=== PATIENT | female | born 1995 | race Caucasian/White ===

== ENCOUNTER 2018-11-04 07:19 | Emergency (ER) | payer OTHER, BC ==
[~2018-11-04] VITALS: Ht 162.6 cm; Wt 65.8 kg
[2018-11-04 07:40] LABS: HEMOGLOBIN 12.5 G/DL (11.5-16.0); MEAN PLATELET VOLUME 9.8 FL (7.4-10.4); RED CELL DISTRIBUTION WIDTH 12.7 % (10.0-14.5); WHITE BLOOD COUNT 10.8 10^3/uL (4.3-11.0)
--- NOTE | 2018-11-04 07:47 | NUR ---
PT HAS SMALL BRUISE TO R SIDE OF LOWER ABDOMEN. PT HAS CONTUSION TO R FOREARM. PT ALSO HAS SMALL LAC TO DORSAL SIDE OF R MIDDLE FINGER.
[2018-11-04 07:52] LABS: ALANINE AMINOTRANSFERASE 24 U/L (0-55); ALBUMIN 4.3 GM/DL (3.2-4.5); ALKALINE PHOSPHATASE 51 U/L (40-136); BILIRUBIN,DIRECT 0.1 MG/DL (0.0-0.3); BILIRUBIN,INDIRECT 0.2 MG/DL; BILIRUBIN,TOTAL 0.3 MG/DL (0.1-1.0); BUN/CREATININE RATIO 26; CALCIUM 9.5 MG/DL (8.5-10.1); CARBON DIOXIDE 23 MMOL/L (21-32); CHLORIDE 106 MMOL/L (98-107); CREATININE SERUM 0.87 MG/DL (0.60-1.30); GFR ESTIMATED > 60; GLUCOSE 97 MG/DL (70-105); POTASSIUM 3.6 MMOL/L (3.6-5.0); SODIUM 138 MMOL/L (135-145); TOTAL PROTEIN 7.3 GM/DL (6.4-8.2)
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
--- NOTE | 2018-11-04 09:01 | NUR ---
pt helped to wc at this time and assisted to bathroom
--- NOTE | 2018-11-04 09:09 | NUR ---
pt assisted back into bed
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
[2018-11-04 09:18] LABS: BILIRUBIN,URINE NEGATIVE (NEGATIVE); CLARITY,URINE CLEAR; COLOR,URINE YELLOW; GLUCOSE, URINE (UA) NEGATIVE (NEGATIVE); KETONES,URINE NEGATIVE (NEGATIVE); LEUKOCYTE ESTERASE ,URINE 1+ (NEGATIVE); NITRITE,URINE NEGATIVE (NEGATIVE); PH,URINE 5 (5-9); PROTEIN,URINE NEGATIVE (NEGATIVE); UROBILINOGEN,URINE NORMAL (NORMAL)
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
[2018-11-04] MEDS ORDERED: HYDR-3812 PO (09:27)
[2018-11-04] MEDS ORDERED: fentaNYL INJECTION 100 MCG/2 ML AMP IVP ONE (09:30)
[2018-11-04 09:37] LABS: BACTERIA,URINE TRACE /HPF; WBC,URINE 0-2 /HPF
[2018-11-04 09:38] LABS: SQUAMOUS EPITHELIAL CELL,UR RARE /HPF
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
[2018-11-04 10:17] VITALS: BP 149/90
--- NOTE | 2018-11-04 10:17 | NUR ---
pt walked to discharge accompanied by boyfriend without difficulty at this time.
== END 2018-11-04 10:17 | disposition home or self-care (01) ==
LOC: EDUNIT# 07:19 → ER 07:20
DX: S22.31XA Fracture of one rib, right side, initial encounter for closed fracture (principal); S50.11XA Contusion of right forearm, initial encounter; S30.1XXA Contusion of abdominal wall, initial encounter; R40.2142 Coma scale, eyes open, spontaneous, at arrival to emergency department; R40.2252 Coma scale, best verbal response, oriented, at arrival to emergency department; R40.2362 Coma scale, best motor response, obeys commands, at arrival to emergency department; V49.40XA Driver injured in collision with unspecified motor vehicles in traffic accident, initial encounter
CPT/HCPCS: 36415; 71045; 71260; 72170; 73090; 73552; 74177; 80048; 80076; 80320; 81000; 84703; 85027; 87088; 93041

== ENCOUNTER → 2020-05-09 | Outpatient (CLI) | payer BC, MEDICAID, OTHER ==
[~2020-05-09] MED LIST: ACHD5005 PO
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
== END ==
LOC: RAD 15:15
PROVIDERS: ATTEND Nurse Practitioner Women's Health
DX: Z34.92 Encounter for supervision of normal pregnancy, unspecified, second trimester (principal); Z3A.19 19 weeks gestation of pregnancy
CPT/HCPCS: 76805

== ENCOUNTER 2020-09-11 13:08 | Inpatient (IN) | payer MEDICAID ==
[2020-09-11] VITALS (8 sets, daily range): BP systolic 142–161; BP diastolic 74–87
[~2020-09-11] VITALS: Ht 162.6 cm; Wt 79.1 kg
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
[2020-09-11 14:41] LABS: BILIRUBIN,URINE NEGATIVE (NEGATIVE); CLARITY,URINE CLEAR; COLOR,URINE YELLOW; GLUCOSE, URINE (UA) NEGATIVE (NEGATIVE); KETONES,URINE NEGATIVE (NEGATIVE); LEUKOCYTE ESTERASE ,URINE NEGATIVE (NEGATIVE); NITRITE,URINE NEGATIVE (NEGATIVE); PROTEIN,URINE NEGATIVE (NEGATIVE)
[2020-09-11 14:50] LABS: AMORPHOUS SEDIMENT,UR MOD AMOR URATES /LPF; BACTERIA,URINE NEGATIVE /HPF; SQUAMOUS EPITHELIAL CELL,UR RARE /HPF; WBC,URINE RARE /HPF
[2020-09-11] MEDS ORDERED: MINERAL OIL CONCENTRATE 99.9% 15 ML UDC TOP PRN (15:45)
--- NOTE | 2020-09-11 15:50 | History & Physical-OB ---
OB - Chief Complaint & HPI Date/Time Date of Admission: Date of Admission: Sep 11, 2020 at 15:22 Date seen by a Provider: Sep 11, 2020 Time Seen by a Provider: 15:30 Chief Complaint/History OB-Reason for Admission/Chief: leakage of fluid Hx : 1 Hx Para: 0 Expected Date of Delivery: Sep 23, 2020 Gestational Age in Weeks: 38 Gestational Age in Days: 2 Admission Nurse Assessment Rev: Yes History of Labs O+/- HIV - Hep C- HBsAg- GBS - Rub I VDRL NR Other Presents with complaint of SROM after intercourse. Fern -, amnisure + Contractions every 2-3 minutes. Admitted for early labor and possible ROM. Likely not ROM but intercourse Admittd for labor Anticipate Allergies and Home Medications Allergies Coded Allergies: No Known Drug Allergies (Unverified , 11/11/11) Patient Home Medication List Home Medication List Reviewed: Yes OB - History Hx of Present Ultrasounds: Normal mid trimester US Obstetrical Complications: Other Medical Complications: Cardiovascular (probable chronic hypertension) Information Pre-Hospital Medication Admins: labetalol 100 mg bid Obstetrical History Hx : 1 Hx Para: 0 Hx # Term Pregnancies: 0 Hx # Pregnancies: 0 Number of Living Children: 0 Delivery History Hx Blood Disorders: No Patient Past Medical History probable chronic hypertension, but not previously diagnosed Social History/Family History HIV/AIDS: No Recent Infectious Disease Expo: No Sexually Transmitted Disease: No Alcohol Use: Denies Use Recreational Drug Use: No Smoking Cessation: Never smoker Immunizations Hepatitis A: Yes Hepatitis B: Yes Tetanus Booster (TDap): Less than 5yrs (06/2020) Date of Influenza Vaccine: Jul 04, 2020 Rubella: immune RPR/VDRL: Negative GBS Status: Negative HBsAG: Negative OB - Admission Exam Physical Exam Vitals: see RN notes Heart: Rhythm Normal Lungs: Clear Abdomen: Gravid Extremities: Edema Reflexes: Normal Cervical Dilatation: 2cm Effacement: 50% Station: -2 Membranes: Intact (questionable) Amniotic Fluid: Clear Heart Rate: 140's Accelerations: Accelerations Present Decelerations: No Decelerations Short Term Variability: Present Mcc Variability: Average (6-25) Contractions on Admission: < 5 Minutes Apart Labs Laboratory Tests Test 09/11/20 13:20 09/11/20 14:00 Range/Units Urine Color YELLOW Urine Clarity CLEAR Urine pH 7.0 5-9 Urine Specific [place] 1.015 L 1.016-1.022 Urine Protein NEGATIVE NEGATIVE Urine Glucose (UA) NEGATIVE NEGATIVE Urine Ketones NEGATIVE NEGATIVE Urine Nitrite NEGATIVE NEGATIVE Urine Bilirubin NEGATIVE NEGATIVE Urine Urobilinogen 0.2 < = 1.0 MG/DL Urine Leukocyte Esterase NEGATIVE NEGATIVE Urine RBC (Auto) NEGATIVE NEGATIVE Urine RBC NONE /HPF Urine WBC RARE /HPF Urine Squamous Epithelial Cells RARE /HPF Urine Crystals NONE /LPF Urine Amorphous Sediment MOD [place]ILL[place] URATES H /LPF Urine Bacteria NEGATIVE /HPF Urine Casts NONE /LPF Urine Mucus NEGATIVE /LPF Urine Culture Indicated NO Amniotic Fluid Ferning Test NEGATIVE NEGATIVE OB - Assessment/Plan/Diagnosis Assessment Assessment: active labor Admission Dx 38 week gestation in labor admit for labor, anticipate Peds - [place] Admission Status: Inpatient Order (span 2 midnights) Reason for Inpatient Admission: labor Plan Plan: Expectant Management SHYANNE BUITRAGO DO Sep 11, 2020 15:50
[2020-09-11 16:49] LABS: BASOPHILS % (AUTO) 0 % (0-10); EOSINOPHILS # (AUTO) 0.4 10^3/uL (0.0-0.3); EOSINOPHILS % (AUTO) 3 % (0-10); HEMATOCRIT 34 % (35-52); HEMOGLOBIN 11.4 g/dL (11.5-16.0); LYMPHOCYTES # (AUTO) 1.8 10^3/uL (1.0-4.0); LYMPHOCYTES % (AUTO) 14 % (12-44); MEAN CORPUSCULAR HEMOGLOBIN 31 pg (25-34); MEAN CORPUSCULAR HGB CONC 34 g/dL (32-36); MEAN CORPUSCULAR VOLUME 91 fL (80-99); MEAN PLATELET VOLUME 10.6 fL (9.0-12.2); MONOCYTES # (AUTO) 0.6 10^3/uL (0.0-1.0); MONOCYTES % (AUTO) 5 % (0-12); NEUTROPHILS # (AUTO) 9.7 10^3/uL (1.8-7.8); NEUTROPHILS % (AUTO) 77 % (42-75); PLATELET COUNT 234 10^3/uL (130-400); WHITE BLOOD COUNT 12.5 10^3/uL (4.3-11.0)
[2020-09-11] MEDS ORDERED: CETI10CA PO (17:09)
[2020-09-11] MEDS ORDERED: LABE100T6 PO (17:09)
[2020-09-11] MEDS ORDERED: PREN-98 PO (17:09)
[2020-09-11] MEDS: D5 LR IV SOLUTION 1,000 ML IV SCH ×2 (17:20→23:45)
[2020-09-11] MEDS ORDERED: fentaNYL INJECTION 100 MCG/2 ML AMP IVP ONE ×2 (19:15→21:30)
[2020-09-11] MEDS ORDERED: fentaNYL INJECTION 100 MCG/2 ML AMP ONE ×2 (21:32→23:53)
[2020-09-11] MEDS ORDERED: CATHETER FLUSH 10 ML SYR IV SCH (22:00)
[2020-09-11] MEDS ORDERED: fentaNYL 2 mcg/ml BUPIVA 0.125 100 ML ONE (22:56)
[2020-09-11] MEDS ORDERED: LIDOCAINE PF 2% 5 ML (XYLOCAINE) VIAL ONE (23:52)
[2020-09-11] MEDS ORDERED: BUPIVACAINE 0.25% 30 ML (SENSORCAINE) VIAL ONE (23:52)
[2020-09-12] VITALS (31 sets, daily range): BP systolic 115–165; BP diastolic 60–93
[2020-09-12] MEDS ORDERED: LACTATED RINGERS 1,000 ML IV ONE ×2
[2020-09-12] MEDS ORDERED: ONDANSETRON 4 MG/2 ML (SDV) Z0FRAN IV PRN
[2020-09-12] MEDS ORDERED: EPIDURAL (fentaNYL 2 MCG/ML BUPIVA 0.125%)100 ML BAG EPI PRN
[2020-09-12] MEDS ORDERED: fentaNYL INJECTION 100 MCG/2 ML AMP INJ ONE
[2020-09-12] MEDS ORDERED: NALOXONE 0.4 MG/ML 1 ML (NARCAN) VIAL IV PRN
[2020-09-12] MEDS ORDERED: LIDOCAINE/EPI 2% 1:200,00 (XYLOCAINE) 10 ML VIAL ONE (04:20)
[2020-09-12] MEDS ORDERED: TETANUS,DIPTH,PERTUSS P/F (BOOSTRIX) 0.5 ML VIAL IM ONE (05:15)
[2020-09-12] MEDS ORDERED: BENZOCAINE/MENTHOL (DERMOPLAST) 60 ML CAN TP PRN (05:15)
[2020-09-12] MEDS ORDERED: OXYTOCIN PRE-MIX DRIP 500 ML IV SCH (05:15)
[2020-09-12] MEDS ORDERED: WITCH HAZEL(TUCKS) 40 EA JAR TOP PRN (05:15)
[2020-09-12] MEDS ORDERED: MEASLES,MUMPS,RUBELLA 1 EA INJ SQ ONE (05:15)
--- NOTE | 2020-09-12 05:15 | OB Labor & Delivery Record ---
Vag Delivery Note Vag Delivery Note Date of Delivery: 09/12/20 Preoperative Diagnosis: Zhanna Odell is a 25 /Para 1 / 0,Gestational Age 38 3/7 weeks who presented in early labor with possible srom Postoperative Diagnosis: Same Surgeon: SHYANNE BUITRAGO Anesthesia: epidural Delivery Type: vaginal Findings: Viable female , apgars 8/9, weight pending Lacerations: vaginal wall abrasions and small left vaginal wall tear Intact placenta with 3 vessel cord. Nuchal cord x 1 reduced, no body cord or shoulder dystocia Estimated Blood Loss: 150 ml Complications: None Condition: Stable Description of Procedure: The patient is a 25 year old female who presented with complaint of ROM. This was questionable, but she was shanice regularly and blood pressures were elevated, so she was admitted for labor Blood pressures have been elevated transiently throughout , but no preeclampsia. She was started on labetalol 100 mg bid about 1 week prior to delivery. Labs and urine have been n egative. She was admitted and informed consent was obtained. Her labor course was remarkable for AROM and then spontaneous contractions She progressed to complete dilatation and began to push. She was then set up for delivery. The infant's head was delivered atraumatically in the OP position. The shoulders and remainder of the 's body were then delivered without difficulty. There was a loose nuchal cord that was reduced. Upon delivery, the head was held below the level of the perineum and the mouth and nares were bulb suctioned. The cord was doubly clamped and cut and the infant was handed off to the pediatric staff. An intact placenta with 3-vessel cord delivered via [place] and there was found to be minimal bleeding.~ Vigorous fundal massage was performed and the fundus was found to be firm. IV oxytocin was given. Examination of the vagina and perineum revealed a small left vaginal wall laceration that continued to ooze despite pressure, so this was repaired with a figure of eight stitch of 3-0 vicryl suture. Following the repair, sponge, instrument and needle counts were correct. Mom and baby were both in stable condition in the labor suite. Vitals - Labs Vital Signs - I&O Vital Signs Date Time Temp Pulse Resp B/P (MAP) Pulse Ox O2 Delivery O2 Flow Rate FiO2 09/12/20 05:05 123 18 150/86 (107) Room Air 09/12/20 04:30 95 18 162/93 (116) Room Air 09/12/20 04:15 102 100 Room Air 09/12/20 04:00 90 18 135/77 (96) 99 Room Air 09/12/20 03:45 90 16 125/69 (87) 99 Room Air 09/12/20 03:30 93 18 151/74 (99) 100 Room Air 09/12/20 03:15 97 16 150/72 (98) 100 Room Air 09/12/20 03:08 82 16 122/71 (88) 100 Room Air 09/12/20 02:52 36.6 80 16 129/65 (86) 97 Room Air 09/12/20 02:38 73 16 126/62 (83) 97 Room Air 09/12/20 02:22 77 16 123/60 (81) 100 Room Air 09/12/20 02:08 75 16 115/60 (78) 96 Room Air 09/12/20 00:50 36.7 71 18 117/61 (79) 98 Room Air 09/12/20 00:35 78 22 117/65 (82) 98 Room Air 09/12/20 00:30 76 22 126/71 (89) 98 Room Air 09/12/20 00:23 77 22 138/69 (92) 98 Room Air 09/12/20 00:18 75 22 159/82 (107) 97 Room Air 09/12/20 00:12 81 22 132/88 (103) 98 Room Air 09/12/20 00:07 88 22 165/78 (107) 98 Room Air 09/12/20 00:02 90 22 153/73 (99) Room Air 09/11/20 23:50 81 16 161/87 (111) Room Air 09/11/20 23:05 36.6 80 16 142/81 (101) Room Air 09/11/20 20:48 68 16 147/78 (101) Room Air 09/11/20 19:50 36.5 83 16 147/78 (101) Room Air 09/11/20 19:14 Room Air 09/11/20 18:30 Room Air 09/11/20 18:00 Room Air 09/11/20 17:30 36.6 65 16 145/85 (105) Room Air 09/11/20 15:30 72 16 143/82 (102) Room Air 09/11/20 15:00 37.1 84 16 97 Room Air 09/11/20 15:00 Room Air 09/11/20 15:00 37.1 84 16 97 Room Air 09/11/20 14:30 Room Air 09/11/20 14:00 37.1 84 16 142/74 (96) 97 Room Air I & O 09/12/20 07:00 Output Total 0 ml Balance 0 ml Labs Laboratory Tests 09/11/20 13:20: Urine Color YELLOW, Urine Clarity CLEAR, Urine pH 7.0, Urine Specific [place] 1.015L, Urine Protein NEGATIVE, Urine Glucose (UA) NEGATIVE, Urine Ketones NEGATIVE, Urine Nitrite NEGATIVE, Urine Bilirubin NEGATIVE, Urine Urobilinogen 0.2, Urine Leukocyte Esterase NEGATIVE, Urine RBC (Auto) NEGATIVE, Urine RBC NONE, Urine WBC RARE, Urine Squamous Epithelial Cells RARE, Urine Crystals NONE, Urine Amorphous Sediment MOD LILLIANA URATESH, Urine Bacteria NEGATIVE, Urine Casts NONE, Urine Mucus NEGATIVE, Urine Culture Indicated NO 09/11/20 14:00: Amniotic Fluid Ferning Test NEGATIVE 09/11/20 15:00: White Blood Count 12.5H, Red Blood Count 3.73L, Hemoglobin 11.4L, Hematocrit 34L , Mean Corpuscular Volume 91, Mean Corpuscular Hemoglobin 31, Mean Corpuscular Hemoglobin Concent 34, Red Cell Distribution Width 12.8, Platelet Count 234, Mean Platelet Volume 10.6, Immature Granulocyte % (Auto) 0, Neutrophils (%) (Auto) 77H, Lymphocytes (%) (Auto) 14, Monocytes (%) (Auto) 5, Eosinophils (%) (Auto) 3, Basophils (%) (Auto) 0, Neutrophils # (Auto) 9.7H, Lymphocytes # (Auto) 1.8, Monocytes # (Auto) 0.6, Eosinophils # (Auto) 0.4H, Basophils # (Auto) 0.0, Immature Granulocyte # (Auto) 0.1 09/11/20 18:30: SHYANNE BUITRAGO DO Sep 12, 2020 05:14
[2020-09-12] MEDS ORDERED: CATHETER FLUSH 10 ML SYR IV SCH (06:00)
[2020-09-12] MEDS: IBUPROFEN 600 MG (MOTRIN) TAB PO SCH ×3 (06:09→18:10)
[2020-09-12] MEDS: ACETAMINOPHEN 500 MG TAB (TYLENOL) PO SCH ×3 (06:09→22:25)
[2020-09-12] MEDS ORDERED: PRENATAL VITAMIN 1 EA TAB PO SCH (07:00)
--- NOTE | 2020-09-12 07:45 | NUR ---
Pt assisted up to standing at side of bed. Pt ambulates to bathroom accompanied by RN. +void. Pericare performed, clean pad and underwear on. Pt assisted to wheelchair. Pt wheeled to room 312 accompanied by RN, S.O., infant, and all personal belongings. Pt and S.O. oriented to room and call light. packet explained. Pt denies needs or concerns at this time. Will return for full assessment.
[2020-09-12] MEDS ORDERED: FERROUS SULF 325 MG (IRON) TAB PO SCH (09:00)
[2020-09-12] MEDS: DOCUSATE SODIUM 100 MG (COLACE) CAP PO SCH (20:53)
[2020-09-13] MEDS: IBUPROFEN 600 MG (MOTRIN) TAB PO SCH ×3 (00:10→12:20)
[2020-09-13 02:00] VITALS: BP 132/67
[2020-09-13 05:57] VITALS: BP 138/73
[2020-09-13] MEDS: ACETAMINOPHEN 500 MG TAB (TYLENOL) PO SCH (05:59)
[2020-09-13 06:10] LABS: BASOPHILS # (AUTO) 0.1 10^3/uL (0.0-0.1); BASOPHILS % (AUTO) 0 % (0-10); EOSINOPHILS # (AUTO) 0.4 10^3/uL (0.0-0.3); EOSINOPHILS % (AUTO) 2 % (0-10); HEMATOCRIT 29 % (35-52); HEMOGLOBIN 9.8 g/dL (11.5-16.0); LYMPHOCYTES # (AUTO) 2.7 10^3/uL (1.0-4.0); LYMPHOCYTES % (AUTO) 15 % (12-44); MEAN CORPUSCULAR HEMOGLOBIN 31 pg (25-34); MEAN CORPUSCULAR HGB CONC 34 g/dL (32-36); MEAN CORPUSCULAR VOLUME 92 fL (80-99); MEAN PLATELET VOLUME 10.5 fL (9.0-12.2); MONOCYTES # (AUTO) 0.8 10^3/uL (0.0-1.0); MONOCYTES % (AUTO) 5 % (0-12); NEUTROPHILS # (AUTO) 13.9 10^3/uL (1.8-7.8); NEUTROPHILS % (AUTO) 77 % (42-75); PLATELET COUNT 209 10^3/uL (130-400)
--- NOTE | 2020-09-13 09:00 | NUR ---
Dr Carrillo here to see pt. Pt may d/c home today if dismissed.
--- NOTE | 2020-09-13 09:01 | Postpartum Progress Note ---
Note Note Day # 1 s/p Subjective: Patient is without complaints. Ambulating, voiding. Tolerating a regular diet without nausea or vomiting. Normal lochia. Pain is well controlled with oral pain medications. breast feeding. Objective: 09/12/20 09/13/20 09/13/20 22:09 02:00 05:57 Temp 36.4 36.3 36.2 Pulse 68 62 71 Resp 18 18 20 B/P (MAP) 133/76 (95) 132/67 (88) 138/73 (94) Pulse Ox 97 96 98 O2 Delivery Room Air Room Air Room Air Laboratory Tests Test 09/13/20 05:16 Range/Units White Blood Count 18.0 H 4.3-11.0 10^3/uL Red Blood Count 3.14 L 3.80-5.11 10^6/uL Hemoglobin 9.8 L 11.5-16.0 g/dL Hematocrit 29 L 35-52 % Mean Corpuscular Volume 92 80-99 fL Mean Corpuscular Hemoglobin 31 25-34 pg Mean Corpuscular Hemoglobin Concent 34 32-36 g/dL Red Cell Distribution Width 13.1 10.0-14.5 % Platelet Count 209 130-400 10^3/uL Mean Platelet Volume 10.5 9.0-12.2 fL Immature Granulocyte % (Auto) 1 % Neutrophils (%) (Auto) 77 H 42-75 % Lymphocytes (%) (Auto) 15 12-44 % Monocytes (%) (Auto) 5 0-12 % Eosinophils (%) (Auto) 2 0-10 % Basophils (%) (Auto) 0 0-10 % Neutrophils # (Auto) 13.9 H 1.8-7.8 10^3/uL Lymphocytes # (Auto) 2.7 1.0-4.0 10^3/uL Monocytes # (Auto) 0.8 0.0-1.0 10^3/uL Eosinophils # (Auto) 0.4 H 0.0-0.3 10^3/uL Basophils # (Auto) 0.1 0.0-0.1 10^3/uL Immature Granulocyte # (Auto) 0.1 0.0-0.1 10^3/uL Physical Exam: General - Alert and oriented, no apparent distress Abdomen - Soft, appropriately tender to palpation, non-distended, fundus firm at umbilicus Extremities - no edema, negative Omid's bilaterally Assessment: 1. post- day # 1, status post spontaneous vaginal delivery. Recovering well, hemodynamically stable 2. acute blood loss anemia Plan: Routine care. Encourage breast feeding. Encourage ambulation. Ferrous sulfate supplementation. Plan for discharge today or tomorrow Vitals - Labs Vital Signs - I&O Vital Signs Date Time Temp Pulse Resp B/P (MAP) Pulse Ox O2 Delivery O2 Flow Rate FiO2 09/13/20 05:57 36.2 71 20 138/73 (94) 98 Room Air 09/13/20 02:00 36.3 62 18 132/67 (88) 96 Room Air 09/12/20 22:09 36.4 68 18 133/76 (95) 97 Room Air 09/12/20 18:08 36.1 73 142/67 (92) Room Air 09/12/20 14:45 36.7 75 18 147/72 (97) Room Air 09/12/20 12:29 36.4 78 18 143/70 (94) 97 Room Air 09/12/20 10:14 36.3 80 18 149/70 (96) 97 Room Air Labs Laboratory Tests 09/13/20 05:16: White Blood Count 18.0H, Red Blood Count 3.14L, Hemoglobin 9.8L, Hematocrit 29L, Mean Corpuscular Volume 92, Mean Corpuscular Hemoglobin 31, Mean Corpuscular Hemoglobin Concent 34, Red Cell Distribution Width 13.1, Platelet Count 209, Mean Platelet Volume 10.5, Immature Granulocyte % (Auto) 1, Neutrophils (%) (Auto) 77H, Lymphocytes (%) (Auto) 15, Monocytes (%) (Auto) 5, Eosinophils (%) (Auto) 2, Basophils (%) (Auto) 0, Neutrophils # (Auto) 13.9H, Lymphocytes # (Auto) 2.7, Monocytes # (Auto) 0.8, Eosinophils # (Auto) 0.4H, Basophils # (Auto) 0.1, Immature Granulocyte # (Auto) 0.1 SHYANNE BUITRAGO DO Sep 13, 2020 09:01
[2020-09-13] MEDS ORDERED: IBUP-844 PO (09:02)
[2020-09-13] MEDS ORDERED: ACET-93 PO (09:02)
--- NOTE | 2020-09-13 09:05 | Discharge Inst-Women's Service ---
Discharge Inst-Women's Serv Depart Medication/Instructions New, Converted or Re-Newed RX: Transmitted to Pharmacy Final Diagnosis Labor 38 week gestation acute blood loss anemia Problems Reviewed?: Yes Consults/Follow Up Additional Follow Up: Yes (6 week post exam) Activity Activity: Activity as Tolerated Driving Instructions: You May Drive NO SMOKING: NO SMOKING Nothing Inside Vagina: No Douching, No [place], No Tampons Diet Discharge Diet: No Restrictions Symptoms to Report to : Swelling Increased, Bleeding Excessive, Pain Increased, Fever Over 101 Degrees F, Vaginal Bleeding Increase, Cramps in Feet or Legs, Vaginal Discharge Foul For Any Problems or Questions: Contact Your Physician SHYANNE BUITRAGO DO Sep 13, 2020 09:05
[2020-09-13] MEDS: DOCUSATE SODIUM 100 MG (COLACE) CAP PO SCH (09:39)
[2020-09-13 12:18] VITALS: BP 152/78
--- NOTE | 2020-09-13 12:30 | NUR ---
Discharge instructions explained to pt with copy provided to pt along with breast pump prescription. Pt notified of need to call office to schedule 6wk f/u appt. Pt notified of scripts available and preferred pharmacy. Pt verbalizes understanding of instructions and signs to verify. Pt denies questions or concerns at this time.
--- NOTE | 2020-09-13 13:35 | NUR ---
Pt ambulates off unit to private vehicle with all personal belongings, accompanied by S.O., , and OB staff. NO s/s of distress noted.
== END 2020-09-13 13:35 | disposition home or self-care (01) | DRG 806 ==
LOC: WSo 13:08 → LDRP 13:09 → WSo 15:22 → LDRP 15:22
PROVIDERS: ADMIT Obstetrics & Gynecology; ATTEND Obstetrics & Gynecology
PROC: 10E0XZZ Delivery of Products of Conception, External Approach (ICD-10-PCS; principal; 2020-09-12)
PROC: 0UQGXZZ Repair Vagina, External Approach (ICD-10-PCS; 2020-09-12)
DX: O69.81X0 Labor and delivery complicated by cord around neck, without compression, not applicable or unspecified (principal); D62 Acute posthemorrhagic anemia; Z37.0 Single live birth; Z3A.38 38 weeks gestation of pregnancy; O71.89 Other specified obstetric trauma; O90.81 Anemia of the puerperium
CPT/HCPCS: 36415; 81000; 85025; 86850; 86900; 86901; 87635; 89060; 99212

== ENCOUNTER → 2021-11-06 | Outpatient (CLI) | payer BC, MEDICAID ==
[~2021-11-06] MED LIST changes: +ACET-93 PO; +CETI10CA PO; +IBUP-844 PO; +LABE100T6 PO; +PREN-98 PO
--- NOTE | 2021-11-06 13:55 | Diagnostic Imaging Report ---
INDICATION: survey. TECHNIQUE: Multiple Real-time grayscale images were obtained over the gravid uterus. COMPARISON: None FINDINGS: There is a single live fetus in a cephalic presentation. heart rate was recorded at 135 BPM. Placenta is anterior. No placenta previa is seen. Amniotic fluid volume is normal. The cervical length is 4.4 cm. kidneys, bladder, and stomach are unremarkable. brain is unremarkable. There is a four-chamber heart. There is a three-vessel cord with normal insertion. spine is unremarkable. Maternal adnexa were not evaluated. Biometrical measurements are as follows: Biparietal 4.80 cm, age 20 weeks 4 days. Head circumference 17.85 cm, age 20 weeks 3 days. Abdominal circumference 14.98 cm, age 20 weeks 2 days. Femur length 3.35 cm, age 20 weeks 4 days. Sonographic estimate age: 20 weeks 4 days. Sonographic estimated date of delivery: 03/22/2022. Estimated Weight: 348 gm (+/- 51 gm). LMP percentile: 41%. heart rate: 135 beats per minute. number: 1 of 1. IMPRESSION: Single live IUP of 20 weeks 4 days gestational age. Estimated date of confinement sonographically is 03/22/2022. Dictated by: Dictated on workstation # [id number]
== END ==
LOC: RAD 12:00
PROVIDERS: ATTEND Obstetrics & Gynecology
DX: Z36.1 Encounter for antenatal screening for raised alphafetoprotein level (principal); Z3A.20 20 weeks gestation of pregnancy
CPT/HCPCS: 76805

== ENCOUNTER → 2021-12-29 | Outpatient (CLI) | payer BC, MEDICAID ==
--- NOTE | 2021-12-29 14:44 | Diagnostic Imaging Report ---
INDICATION: Chronic hypertension during . TECHNIQUE: Multiple real-time grayscale images were obtained over the gravid uterus. COMPARISON: 11/06/2021. FINDINGS: The cervix measures approximately 4.0 cm in length. Fetus is in cephalic presentation. Placenta is anterior and fundal in position. The ALLA is normal at 13.38 cm. Limited anatomy assessment was performed. Maternal adnexa are not imaged. Biometrical measurements are as follows: Biparietal 7.20 cm, age 29 weeks 0 days. Head circumference 25.35 cm, age 27 weeks 4 days. Abdominal circumference 22.76 cm, age 27 weeks 2 days. Femur length 5.67 cm, age 29 weeks 6 days. Sonographic estimate age: 28 weeks 3 days. Sonographic estimated date of delivery: 03/20/2022. Estimated Weight: 1189 gm (+/- 174 gm). LMP percentile: 45%. heart rate: 140 beats per minute. number: 1 of 1. IMPRESSION: 1. Single live intrauterine . 2. Appropriate growth since second trimester ultrasound. Dictated by: Dictated on workstation # [id number]
== END ==
LOC: RAD 09:49
PROVIDERS: ATTEND Obstetrics & Gynecology
DX: O16.9 Unspecified maternal hypertension, unspecified trimester (principal); Z3A.00 Weeks of gestation of pregnancy not specified
CPT/HCPCS: 76805

== ENCOUNTER → 2022-01-25 | Outpatient (CLI) | payer BC, MEDICAID ==
--- NOTE | 2022-01-25 11:57 | Diagnostic Imaging Report ---
INDICATION: Chronic hypertension. TECHNIQUE: Multiple real-time grayscale images were obtained over the gravid uterus. COMPARISON: 12/29/2021. FINDINGS: There is a single live fetus in a cephalic presentation. heart rate was recorded at 158 BPM. Amniotic fluid index is 14.4 cm. Biophysical profile was performed. Biophysical profile score is normal at 8/8. Biometrical measurements are as follows: Biparietal 7.50 cm, age 30 weeks 1 days. Head circumference 27.65 cm, age 30 weeks 2 days. Abdominal circumference 25.33 cm, age 29 weeks 4 days. Femur length 6.12 cm, age 31 weeks 6 days. Sonographic estimate age: 30 weeks 4 days. Sonographic estimated date of delivery: 04/01/2022. Estimated Weight: 1559 gm (+/- 228 gm). LMP percentile: 7%. heart rate: 158 beats per minute. number: 1 of 1. IMPRESSION: Single live IUP of approximately 31 weeks gestational age. Biophysical profile score is normal at 8/8. Dictated by: Dictated on workstation # [id number]
== END ==
LOC: RAD 10:00
PROVIDERS: ATTEND Obstetrics & Gynecology
DX: O16.3 Unspecified maternal hypertension, third trimester (principal); Z3A.31 31 weeks gestation of pregnancy
CPT/HCPCS: 76805; 76819

== ENCOUNTER → 2022-01-28 | Outpatient (CLI) | payer BC, MEDICAID ==
[2022-01-28 17:03] LABS: URINE CREATININE FOR RATIO 26 MG/DL (30-125); URINE PROTEIN FOR RATIO ONLY < 6 MG/DL (6-12)
== END | disposition home or self-care (01) ==
LOC: LABNPT 16:38
PROVIDERS: ATTEND Obstetrics & Gynecology
DX: O13.9 Gestational [pregnancy-induced] hypertension without significant proteinuria, unspecified trimester (principal); Z3A.00 Weeks of gestation of pregnancy not specified
CPT/HCPCS: 82570; 84156

== ENCOUNTER → 2022-02-09 | Outpatient (RCR) | payer BC, MEDICAID ==
--- NOTE | 2022-02-02 09:45 | Diagnostic Imaging Report ---
TIME OF STUDY: 02/02/2022 9:34 AM INDICATION: Hypertension. COMPARISON: 01/25/2022. TECHNIQUE: Transabdominal sonogram was performed. GESTATIONAL AGE: 33 weeks, 0 days GENERAL EVALUATION: Presentation: Cephalic Placenta: Anterior Cardiac activity: 146 bpm Amniotic fluid index: The total ALLA is 9.9 cm. BIOPHYSICAL PROFILE SCORING: tone: 2 movement: 2 breathin Amniotic fluid: 2 TOTAL SCORE: 8 out of 8 FINDINGS/ IMPRESSION: 1. Single live intrauterine gestation with biophysical profile score of 8 out of 8. No abnormalities are detected. Dictated by: Dictated on workstation # [id number]
[~2022-02-09] MED LIST changes: +AMLO-250 PO
--- NOTE | 2022-02-12 13:49 | Diagnostic Imaging Report ---
INDICATION: Gestational hypertension. FINDINGS: There is a single live fetus in a cephalic presentation. heart rate was recorded at 130 bpm. Amniotic fluid index is 8.2 cm. Biophysical profile score is normal at 8 out of 8. cord Dopplers are as follows: end: Peak systolic velocity 78 cm/s, end-diastolic volume 20 cm/s, resistive index is 0.75, SD ratio 3.9. Placental end: Peak systolic velocity 52 cm/s, end-diastolic volume 23 cm/s, resistive index 0.56, SD ratio 2.3 IMPRESSION: Biophysical profile score a normal 8 out of 8. Resistive indices appear to be within normal limits. Dictated by: Dictated on workstation # [id number]
== END | disposition home or self-care (01) ==
LOC: EDSTATUS 02-02 09:00 → RAD 02-02 09:00
PROVIDERS: ATTEND Obstetrics & Gynecology
DX: O16.3 Unspecified maternal hypertension, third trimester (principal); Z3A.33 33 weeks gestation of pregnancy
CPT/HCPCS: 76819

== ENCOUNTER 2022-02-24 08:52 | Outpatient (RCR) | payer BC, MEDICAID ==
--- NOTE | 2022-02-16 13:55 | Diagnostic Imaging Report ---
Indication: Gestational hypertension. Correlation is made with prior study from 02/09/2022. Single live fetus in a cephalic presentation. heart rate was recorded at 127 bpm. Amniotic fluid index is 8.9 cm. Biophysical profile score is normal at 8 out of 8. cord Doppler measurements are as follows: end: Peak systolic velocity 64 cm/s. End-diastolic velocity 20 cm/s. Resistive index 0.70. SD ratio 3.3. Placental end: Peak systolic velocity 37 cm/s. End-diastolic velocity 17 cm/s. Resistive index 0.55. SD ratio 2.2. IMPRESSION: Continued normal biophysical profile score of 8 out of 8 with stable cord Doppler when compared with prior study from 02/09/2022. Dictated by: Dictated on workstation # [id number]
[~2022-02-24 08:52] MED LIST changes: -AMLO-250 PO
--- NOTE | 2022-02-24 12:08 | Diagnostic Imaging Report ---
HISTORY: Chronic hypertension, COMPARISON: 02/16/2022 TECHNIQUE: Transabdominal ultrasound of the gravid uterus. In addition, color Doppler and spectral Doppler ultrasound was performed of the umbilical cord. FINDINGS: There is a single live intrauterine gestation in cephalic presentation. The heart rate measures 136 BPM. The amniotic fluid index is measured at 6.2 cm. The biophysical profile score is 8 out of 8. The cord Doppler demonstrates continuous forward diastolic flow throughout the cord. SD ratio ranges between 3.7 at the cord insertion and 2.3 at the placenta. Velocity measures 96 cm/s at the fetus and 34 cm/s at the placenta. The resistive index measures 0.7. The fetus and 0.56 at the placenta. These appear similar to the prior exam. IMPRESSION: 1. Biophysical profile score of 8 out of 8. Dictated by: Dictated on workstation # [id number]
[2022-03-03] MEDS ORDERED: AMLO-250 PO (08:05)
[2022-03-03] MEDS ORDERED: IBUP-844 PO (20:03)
== END 2022-03-11 | disposition home or self-care (01) ==
LOC: RAD 08:52
PROVIDERS: ATTEND Obstetrics & Gynecology
DX: O16.9 Unspecified maternal hypertension, unspecified trimester (principal)
CPT/HCPCS: 76819

== ENCOUNTER 2022-03-03 06:00 | Inpatient (IN) | payer BC, MEDICAID ==
[~2022-03-03] VITALS: Ht 162.6 cm; Wt 80.9 kg
[2022-03-03] VITALS (70 sets, daily range): BP systolic 115–178; BP diastolic 58–103
[2022-03-03] MEDS: LACTATED RINGERS 1,000 ML IV SCH (07:30)
[2022-03-03] MEDS ORDERED: OXYTOCIN PRE-MIX DRIP 500 ML IV ONE (07:55)
[2022-03-03] MEDS: OXYTOCIN PRE-MIX DRIP 500 ML IV SCH ×2 (08:01→19:57)
[2022-03-03] MEDS ORDERED: AMLO-250 PO (08:05)
[2022-03-03 08:28] LABS: BILIRUBIN,URINE NEGATIVE (NEGATIVE); CLARITY,URINE CLEAR; COLOR,URINE YELLOW; GLUCOSE, URINE (UA) NEGATIVE (NEGATIVE); KETONES,URINE NEGATIVE (NEGATIVE); LEUKOCYTE ESTERASE ,URINE NEGATIVE (NEGATIVE); NITRITE,URINE NEGATIVE (NEGATIVE); PH,URINE 6.5 (5-9); PROTEIN,URINE NEGATIVE (NEGATIVE)
[2022-03-03 08:30] LABS: BASOPHILS % (AUTO) 0 % (0-10); EOSINOPHILS # (AUTO) 0.2 10^3/uL (0.0-0.3); EOSINOPHILS % (AUTO) 2 % (0-10); HEMATOCRIT 34 % (35-52); HEMOGLOBIN 11.8 g/dL (11.5-16.0); LYMPHOCYTES # (AUTO) 2.2 10^3/uL (1.0-4.0); LYMPHOCYTES % (AUTO) 20 % (12-44); MEAN CORPUSCULAR HEMOGLOBIN 31 pg (25-34); MEAN CORPUSCULAR HGB CONC 35 g/dL (32-36); MEAN CORPUSCULAR VOLUME 90 fL (80-99); MEAN PLATELET VOLUME 10.6 fL (9.0-12.2); MONOCYTES # (AUTO) 0.6 10^3/uL (0.0-1.0); MONOCYTES % (AUTO) 5 % (0-12); NEUTROPHILS # (AUTO) 7.9 10^3/uL (1.8-7.8); NEUTROPHILS % (AUTO) 72 % (42-75); PLATELET COUNT 243 10^3/uL (130-400); WHITE BLOOD COUNT 10.9 10^3/uL (4.3-11.0)
[2022-03-03] MEDS ORDERED: MINERAL OIL 30 ML TOP PRN (08:30)
[2022-03-03] MEDS: D5 LR IV SOLUTION 1,000 ML IV SCH ×2 (08:46→17:15)
[2022-03-03 08:48] LABS: BACTERIA,URINE MODERATE /HPF; SQUAMOUS EPITHELIAL CELL,UR 0-2 /HPF
[2022-03-03] MEDS ORDERED: fentaNYL 2 mcg/ml BUPIVA 0.125 100 ML ONE (14:40)
[2022-03-03] MEDS ORDERED: fentaNYL INJ 100 MCG/2 ML AMP ONE (14:52)
[2022-03-03] MEDS ORDERED: LIDOCAINE PF 2% 5 ML (XYLOCAINE) VIAL ONE (14:53)
[2022-03-03] MEDS ORDERED: NALOXONE 0.4 MG/ML 1 ML (NARCAN) VIAL IV PRN ×2 (16:45→20:00)
[2022-03-03] MEDS ORDERED: fentaNYL 2 mcg/ml BUPIVA 0.125 100 ML IV SCH (16:45)
[2022-03-03] MEDS ORDERED: diphenhydrAMINE 50 MG/ML INJ (BENADRYL) IV PRN (16:45)
[2022-03-03] MEDS ORDERED: CATHETER FLUSH 10 ML SYR IV PRN (16:45)
[2022-03-03] MEDS ORDERED: LACTATED RINGERS 1,000 ML IV ONE (16:45)
[2022-03-03] MEDS ORDERED: ONDANSETRON 4 MG/2 ML (SDV) Z0FRAN IV PRN (16:45)
[2022-03-03] MEDS ORDERED: LIDOCAINE/EPI 2% 1:200,00 (XYLOCAINE) 10 ML VIAL INJ ONE (19:15)
--- NOTE | 2022-03-03 19:57 | History & Physical-OB ---
OB - Chief Complaint & HPI Date/Time Date of Admission: Date of Admission: Mar 03, 2022 at 06:00 Time Seen by a Provider: 07:30 Chief Complaint/History OB-Reason for Admission/Chief: Induction of Labor Hx : 2 Hx Para: 1 Expected Date of Delivery: Mar 23, 2022 Gestational Age in Weeks: 37 Gestational Age in Days: 1 Indication for induction: other ( growth restriction, umbilical cord doppler with RI 95th percentile, CHTN) Allergies and Home Medications Allergies Coded Allergies: No Known Drug Allergies (Unverified , 11/11/11) Patient Home Medication List Home Medication List Reviewed: Yes Amlodipine Besylate (Amlodipine Besylate) 5 Mg Tablet, 5 MG PO HS, (Reported) Entered as Reported by: RADHA SALAZAR on 03/03/22804 Last Action: New Order Vit37/Iron/Folic Acid ([place] Chewable Tablet) 1 Each Tab.chew, 1 EACH PO DAILY, (Reported) Entered as Reported by: LAZ VALLADARES on 09/11/201708 Last Action: Reviewed Discontinued Medications Acetaminophen (Acetaminophen) 500 Mg Tablet, 1,000 MG PO Q8HR Discontinued Reason: No Longer Taking Prescribed by: SHYANNE BUITRAGO on 09/13/20901 Last Action: Discontinued Cetirizine HCl (Zyrtec) 10 Mg Capsule, 10 MG PO DAILY, (Reported) Discontinued Reason: No Longer Taking Entered as Reported by: LAZ VALLADARES on 09/11/201708 Last Action: Discontinued Ibuprofen (Ibu) 600 Mg Tablet, 600 MG PO Q6HR Discontinued Reason: No Longer Taking Prescribed by: SHYANNE BUITRAGO on 09/13/20901 Last Action: Discontinued OB - History Hx of Present Care: Yes Ultrasounds: Normal mid trimester US Obstetrical Complications: Growth Restriction, Other Medical Complications: Other (CHTN) Delivery History Hx Blood Disorders: No Adverse Rxn to Tranfusion: No Patient Past Medical History chronic hypertension Social History/Family History Alcohol Use: Denies Use Recreational Drug Use: No Smoking Cessation: Never smoker 2nd Hand Smoke Exposure: No Immunizations Influenza Vaccine Up-to-Date: No; Not Current First/Initial COVID19 Vaccine: MARCH 2021 Second COVID19 Vaccination: APRIL 2021 COVID19 Vaccine Power Cleaner Operator: MARC Hepatitis A: Yes Hepatitis B: Yes Tetanus Booster (TDap): Less than 5yrs OB - Admission Exam Physical Exam Vitals: Vital Signs 03/03/22 03/03/22 18:20 19:06 Temp 36.6 Pulse 90 Resp 18 B/P (MAP) 141/96 (111) Pulse Ox 100 O2 Delivery Room Air HEENT: NCAT Lungs: Clear Abdomen: Gravid Extremities: Normal Cervical Dilatation: 2cm Effacement: 50% Station: -3 Membranes: Intact Amniotic Fluid: Clear Accelerations: Accelerations Present Decelerations: No Decelerations Short Term Variability: Present Snf Variability: Average (6-25) Labs Laboratory Tests Test 03/03/22 06:10 03/03/22 07:25 Range/Units Urine Color YELLOW Urine Clarity CLEAR Urine pH 6.5 5-9 Urine Specific [place] 1.015 L 1.016-1.022 Urine Protein NEGATIVE NEGATIVE Urine Glucose (UA) NEGATIVE NEGATIVE Urine Ketones NEGATIVE NEGATIVE Urine Nitrite NEGATIVE NEGATIVE Urine Bilirubin NEGATIVE NEGATIVE Urine Urobilinogen 0.2 < = 1.0 MG/DL Urine Leukocyte Esterase NEGATIVE NEGATIVE Urine RBC (Auto) NEGATIVE NEGATIVE Urine RBC NONE /HPF Urine WBC 2-5 /HPF Urine Squamous Epithelial Cells 0-2 /HPF Urine Crystals NONE /LPF Urine Bacteria MODERATE H /HPF Urine Casts NONE /LPF Urine Mucus NEGATIVE /LPF Urine Culture Indicated NO White Blood Count 10.9 4.3-11.0 10^3/uL Red Blood Count 3.82 3.80-5.11 10^6/uL Hemoglobin 11.8 11.5-16.0 g/dL Hematocrit 34 L 35-52 % Mean Corpuscular Volume 90 80-99 fL Mean Corpuscular Hemoglobin 31 25-34 pg Mean Corpuscular Hemoglobin Concent 35 32-36 g/dL Red Cell Distribution Width 13.0 10.0-14.5 % Platelet Count 243 130-400 10^3/uL Mean Platelet Volume 10.6 9.0-12.2 fL Immature Granulocyte % (Auto) 1 % Neutrophils (%) (Auto) 72 42-75 % Lymphocytes (%) (Auto) 20 12-44 % Monocytes (%) (Auto) 5 0-12 % Eosinophils (%) (Auto) 2 0-10 % Basophils (%) (Auto) 0 0-10 % Neutrophils # (Auto) 7.9 H 1.8-7.8 10^3/uL Lymphocytes # (Auto) 2.2 1.0-4.0 10^3/uL Monocytes # (Auto) 0.6 0.0-1.0 10^3/uL Eosinophils # (Auto) 0.2 0.0-0.3 10^3/uL Basophils # (Auto) 0.0 0.0-0.1 10^3/uL Immature Granulocyte # (Auto) 0.1 0.0-0.1 10^3/uL OB - Assessment/Plan/Diagnosis Assessment Assessment: induction of labor Admission Dx @37.1wga pregestational hypertension growth restriction Admission Status: Inpatient Order (span 2 midnights) Reason for Inpatient Admission: Induction Plan Plan: Induction Induction Method: per Pitocin Protocol Discharge Diagnosis Diagnosis: @37.1wga pregestational hypertension growth restriction MARCOS LIMA MD Mar 03, 2022 19:57
--- NOTE | 2022-03-03 19:59 | OB Labor & Delivery Record ---
Vag Delivery Note Vag Delivery Note Date of Delivery: 03/03/22 Preoperative Diagnosis: Zhanna Odell is a (26 /Para / ,Gestational Age (wks)37with [] Postoperative Diagnosis: Same Surgeon: MARCOS LIMA Otr Flatbed Driver: [] Anesthesia: [Epidural] Delivery Type: [Spontaneous vaginal delivery] Findings: [] Viable [female] infant, apgars [8/9] Lacerations: None Intact placenta with 3 vessel cord. No nuchal cord, body cord or shoulder dystocia Estimated Blood Loss: [] 150 ml Complications: None Condition: Stable Description of Procedure: Admitted for scheduled induction of labor for diagnosis of growth restriction, pregestational chronic hypertension. Patient received corticosteroids last week. She had Pitocin with artificial rupture of membranes revealing clear fluid. Epidural was placed per her request. She progressed to stage II with category 1 category 2 heart tones. She pushed through 2 contractions delivering a female in the MARCIN position. Nose and mouth were suctioned was placed on mom's abdomen for delayed cord clamping. A cord segment was obtained and held. Cord blood was drawn and the placenta was expressed. The placenta was appreciated to be intact without any calcifications or infarcts. Central cord insertion was appreciated. Uterine tone was achieved with Pitocin after delivery of the . No lacerations were noted. Mom and baby tolerated delivery well. Vitals - Labs Vital Signs - I&O Vital Signs Date Time Temp Pulse Resp B/P (MAP) Pulse Ox O2 Delivery O2 Flow Rate FiO2 03/03/22 19:06 90 18 141/96 (111) 100 Room Air 03/03/22 18:52 86 18 142/87 (105) 100 Room Air 03/03/22 18:37 83 18 144/67 (92) 100 Room Air 03/03/22 18:20 36.6 03/03/22 18:11 88 18 141/83 (102) 100 Room Air 03/03/22 17:58 83 18 140/83 (102) 100 Room Air 03/03/22 17:49 90 18 119/69 (86) 99 Room Air 03/03/22 17:41 36.3 77 18 124/67 (86) Room Air 03/03/22 17:32 85 18 119/64 (82) 99 Room Air 03/03/22 17:22 82 18 127/70 (89) 100 Room Air 03/03/22 17:12 86 18 115/61 (79) 100 Room Air 03/03/22 17:01 85 18 117/66 (83) 99 Room Air 03/03/22 16:44 89 18 120/58 (78) 99 Room Air 03/03/22 16:32 83 18 116/67 (83) 99 Room Air 03/03/22 16:18 88 18 134/73 (93) 99 Room Air 03/03/22 16:12 77 18 133/72 (92) 97 Room Air 03/03/22 16:08 78 18 132/75 (94) 97 Room Air 03/03/22 16:03 77 18 137/74 (95) 97 Room Air 03/03/22 15:58 78 18 134/75 (94) 97 Room Air 03/03/22 15:52 77 18 134/75 (94) 98 Room Air 03/03/22 15:46 77 18 134/75 (94) 99 Room Air 03/03/22 15:42 78 18 136/74 (94) 98 Room Air 03/03/22 15:37 84 18 132/73 (92) 99 Room Air 03/03/22 15:33 80 18 134/78 (96) 99 Room Air 03/03/22 15:28 82 18 136/78 (97) 99 Room Air 03/03/22 15:22 97 18 140/73 (95) 97 Room Air 03/03/22 15:16 89 18 136/83 (100) 97 Room Air 03/03/22 15:13 87 18 130/76 (94) 97 Room Air 03/03/22 15:10 80 18 123/79 (94) Room Air 03/03/22 15:07 80 18 146/91 (109) 98 Room Air 03/03/22 15:04 76 18 159/93 (115) 98 Room Air 03/03/22 15:01 80 18 161/94 (116) Room Air 03/03/22 14:58 77 18 161/93 (115) 99 Room Air 03/03/22 14:36 75 18 161/95 (117) Room Air 03/03/22 14:20 74 18 140/93 (109) Room Air 03/03/22 14:05 80 18 127/81 (96) Room Air 03/03/22 13:51 75 18 145/86 (105) Room Air 03/03/22 13:35 74 18 165/98 (120) Room Air 03/03/22 13:20 73 18 171/99 (123) Room Air 03/03/22 13:05 71 18 160/90 (113) Room Air 03/03/22 12:33 72 18 146/99 (115) Room Air 03/03/22 12:20 71 18 141/91 (108) Room Air 03/03/22 12:04 70 18 155/92 (113) Room Air 03/03/22 11:55 76 18 164/93 (116) Room Air 03/03/22 11:47 36.5 03/03/22 11:34 72 18 142/82 (102) Room Air 03/03/22 11:20 77 18 150/78 (102) Room Air 03/03/22 11:05 78 18 142/91 (108) Room Air 03/03/22 10:50 75 18 139/82 (101) Room Air 03/03/22 10:35 73 18 134/86 (102) Room Air 03/03/22 10:20 77 18 144/93 (110) Room Air 03/03/22 10:03 75 18 149/87 (107) Room Air 03/03/22 09:50 71 18 142/81 (101) Room Air 03/03/22 09:33 71 18 142/84 (103) Room Air 03/03/22 09:20 82 18 146/93 (110) Room Air 03/03/22 09:04 69 18 139/80 (99) Room Air 03/03/22 08:50 76 18 146/83 (104) Room Air 03/03/22 08:47 36.4 03/03/22 08:35 77 18 138/86 (103) 97 Room Air 03/03/22 08:19 80 18 141/82 (101) 97 Room Air 03/03/22 08:03 83 18 143/86 (105) 99 Room Air 03/03/22 07:18 36.4 91 18 97 Room Air 03/03/22 07:18 91 18 178/92 (120) 97 Room Air Labs Laboratory Tests 03/03/22 06:10: Urine Color YELLOW, Urine Clarity CLEAR, Urine pH 6.5, Urine Specific [place] 1.015L, Urine Protein NEGATIVE, Urine Glucose (UA) NEGATIVE, Urine Ketones NEGATIVE, Urine Nitrite NEGATIVE, Urine Bilirubin NEGATIVE, Urine Urobilinogen 0.2, Urine Leukocyte Esterase NEGATIVE, Urine RBC (Auto) NEGATIVE, Urine RBC NONE, Urine WBC 2-5, Urine Squamous Epithelial Cells 0-2, Urine Crystals NONE, Urine Bacteria MODERATEH, Urine Casts NONE, Urine Mucus NEGATIVE, Urine Culture Indicated NO 03/03/22 07:25: White Blood Count 10.9, Red Blood Count 3.82, Hemoglobin 11.8, Hematocrit 34L, Mean Corpuscular Volume 90, Mean Corpuscular Hemoglobin 31, Mean Corpuscular Hemoglobin Concent 35, Red Cell Distribution Width 13.0, Platelet Count 243, Mean Platelet Volume 10.6, Immature Granulocyte % (Auto) 1, Neutrophils (%) (Auto) 72, Lymphocytes (%) (Auto) 20, Monocytes (%) (Auto) 5, Eosinophils (%) (Auto) 2, Basophils (%) (Auto) 0, Neutrophils # (Auto) 7.9H, Lymphocytes # (Auto) 2.2, Monocytes # (Auto) 0.6, Eosinophils # (Auto) 0.2, Basophils # (Auto) 0.0, Immature Granulocyte # (Auto) 0.1 MARCOS LIMA MD Mar 03, 2022 19:59
[2022-03-03] MEDS ORDERED: MEASLES,MUMPS,RUBELLA 1 EA INJ SQ ONE (20:00)
[2022-03-03] MEDS ORDERED: WITCH HAZEL(TUCKS) 40 EA JAR TOP PRN (20:00)
[2022-03-03] MEDS ORDERED: BENZOCAINE/MENTHOL (DERMOPLAST) 56 ML CAN TP PRN (20:00)
[2022-03-03] MEDS ORDERED: OXYTOCIN PRE-MIX DRIP 500 ML IV SCH (20:00)
[2022-03-03] MEDS ORDERED: IBUP-844 PO (20:03)
[2022-03-03] MEDS: IBUPROFEN 600 MG (MOTRIN) TAB PO SCH (22:43)
[2022-03-04] VITALS: BP 144/81
[2022-03-04 05:00] VITALS: BP 132/74
[2022-03-04] MEDS: IBUPROFEN 600 MG (MOTRIN) TAB PO SCH ×4 (05:18→23:44)
[2022-03-04] MEDS: ACETAMINOPHEN 500 MG TAB (TYLENOL) PO SCH ×4 (05:35→23:44)
--- NOTE | 2022-03-04 07:26 | Anesthesia-Regional Post-Op ---
Regional Patient Condition Mental Status: Alert, Oriented x3 Circulation: Same as Pre-Op Headache: Absent Sensation: Full Recovery Motor Block: Absent Post Op Complications Complications None Follow Up Care/Instructions Patient Instructions None needed. Anesthesia/Patient Condition Patient is doing well, no complaints, stable vital signs, no apparent adverse anesthesia problems. No complications reported per nursing. D/C home per [facility] [place] Criteria: Yes LUIS ROSS CRNA Mar 04, 2022 07:26
[2022-03-04] MEDS: DOCUSATE SODIUM 100 MG (COLACE) CAP PO SCH ×3 (07:45→20:15)
--- NOTE | 2022-03-04 09:33 | Progress Note ---
Standard Progress Note Progress Notes/Assess & Plan Date Seen by a Provider: Mar 04, 2022 Time Seen by a Provider: 09:32 Progress/Assessment & Plan Subjective: Patient states pain is well controlled tolerating p.o. lochia is reduced. Breast-feeding is going well no complaints of. Denies headache blurry vision right upper quadrant pain. Objective: Vital signs are stable patient is afebrile General alert oriented x3 no acute distress resting comfortably in the bed Chest is nonlabored Abdominal exam not performed while she is eating breakfast however no complaints from pound keeper: Status post spontaneous vaginal delivery post day 1 doing well with pregestational chronic hypertension Plan: Continue routine care with support Blood pressure goal less than 140/90 Anticipate dismissal at time of dismissal MARCOS LIMA MD Mar 04, 2022 09:33
[2022-03-04 10:35] VITALS: BP 136/74
[2022-03-04 11:54] VITALS: BP 156/82
[2022-03-04] MEDS: LACTATED RINGERS 1,000 ML IV SCH ×9 (13:26→13:35)
[2022-03-04] MEDS: CATHETER FLUSH 10 ML SYR IV SCH ×7 (13:26→13:35)
[2022-03-04] MEDS: D5 LR IV SOLUTION 1,000 ML IV SCH ×2 (13:31→13:33)
[2022-03-04 16:52] VITALS: BP 147/81
[2022-03-04 18:37] VITALS: BP 133/73
[2022-03-05 00:02] VITALS: BP 123/57
[2022-03-05] MEDS: ACETAMINOPHEN 500 MG TAB (TYLENOL) PO SCH (05:28)
[2022-03-05] MEDS: IBUPROFEN 600 MG (MOTRIN) TAB PO SCH ×2 (05:28→12:05)
[2022-03-05 05:32] VITALS: BP 134/64
[2022-03-05 08:30] VITALS: BP 144/92
[2022-03-05] MEDS ORDERED: amLODIPine 5 MG (NORVASC) TAB PO SCH (09:00)
[2022-03-05] MEDS: DOCUSATE SODIUM 100 MG (COLACE) CAP PO SCH (09:00)
== END 2022-03-05 12:30 | disposition home or self-care (01) | DRG 806 ==
LOC: LDRP 06:00
PROVIDERS: ADMIT Obstetrics & Gynecology; ATTEND Obstetrics & Gynecology
PROC: 10E0XZZ Delivery of Products of Conception, External Approach (ICD-10-PCS; principal; 2022-03-03)
PROC: 3E033VJ Introduction of Other Hormone into Peripheral Vein, Percutaneous Approach (ICD-10-PCS; 2022-03-03)
DX: O36.5930 Maternal care for other known or suspected poor fetal growth, third trimester, not applicable or unspecified (principal); O10.92 Unspecified pre-existing hypertension complicating childbirth; Z37.0 Single live birth; Z3A.37 37 weeks gestation of pregnancy
CPT/HCPCS: 36415; 81000; 85025; 86850; 86900; 86901